=== PATIENT | female | born 1975 | race Caucasian/White ===

== ENCOUNTER 2016-09-13 07:16 | Emergency (ER) | payer OTHER ==
[2016-09-13 07:34] VITALS: BP 132/87
--- NOTE | 2016-09-13 08:05 | UC ---
Back Pain HPI - HPI Summary HPI Summary: 2 DAYS OF DIFFUSE LOW BACK PAIN. WORSE WITH MOVEMENT. NO H/O CHRONIC BACK ISSUES. 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 PAIN WAS INITIALLY NOT TOO BAD BUT HAS WORSENED. IBUPROFEN NOT HELPING. NO SADDLE ANESTHESIA OR LOWER EXTREMITY NUMBNESS/TINGLING. - History of Current Complaint Chief Complaint: UCBackPain Stated Complaint: LOWER BACK PAIN Time Seen by Provider: 09/13/16 07:46 Hx Obtained From: Patient Hx Last Menstrual Period: 09/13/16 Onset/Duration: Gradual Onset, Lasting Days, Still Present Timing: Constant Severity Initially: Mild Severity Currently: Moderate Pain Intensity: 3 Pain Scale Used: 0-10 Numeric Back Pain: Is Discrete @ - LOW BACK Character: Sharp, Aching Aggravating: Movement Alleviating: Rest Associated Signs And Symptoms: Positive: Pain with Weight Bearing. Negative: Swelling, Redness, Bruising, Fever, Weakness, Numbness, Tingling, Abdominal Pain , Flank Pain, Bladder Incontinence, Bowel Incontinence, Weight Loss - Allergies/Home Medications Allergies/Adverse Reactions: Allergies Allergy/AdvReac Type Severity Reaction Status Date / Time No Known Allergies Allergy Verified 09/13/16 07:22 PMH/Surg Hx/FS Hx/Imm Hx Endocrine History Of: Reports: Diabetes - Gestational- resolved 2003, Thyroid Disease, Hypothyroidism Cardiovascular History Of: Denies: Cardiac Disorders, Hypertension, Pacemaker/ICD Respiratory History Of: Denies: COPD, Asthma GI/ History Of: Reports: Gastroesophageal Reflux Denies: Renal Disease Neurological History Of: Reports: TIA - 11/2015 Denies: CVA, Dementia, Seizures Psychological History Of: Reports: Anxiety, Depression Other History Of: Negative For: Anticoagulant Therapy - Surgical History Surgical History: Yes Surgery Procedure, Year, and Place: T&A, LYMPH NODE REMOVED FROM GROIN - Family History Known Family History: Negative: Cardiac Disease, Hypertension, Diabetes - Social History Alcohol Use: Rare Substance Use Type: None Smoking Status (MU): Former Smoker - Immunization History Most Recent Influenza Vaccination: 2016 Most Recent Tetanus Shot: UTD Most Recent Pneumonia Vaccination: none Review of Systems Constitutional: Negative Skin: Negative Respiratory: Negative Cardiovascular: Negative Gastrointestinal: Negative Musculoskeletal: Decreased ROM, Myalgia All Other Systems Reviewed And Are Negative: Yes Physical Exam Triage Information Reviewed: Yes Appearance: Well-Appearing, Well-Nourished, Pain Distress - MILD Vital Signs: Initial Vital Signs Temp 97.5 F 09/13/16 07:25 Pulse 76 09/13/16 07:25 Resp 18 09/13/16 07:25 BP 132/87 09/13/16 07:25 Pulse Ox 98 09/13/16 07:25 Vital Signs Reviewed: Yes Eyes: Positive: Conjunctiva Clear ENT: Positive: Hearing grossly normal Neck: Positive: Supple Respiratory: Positive: No respiratory distress, No accessory muscle use Cardiovascular: Positive: Pulses Normal Abdomen Description: Positive: Soft Musculoskeletal: Positive: No Edema, ROM Limited @ - BACK Neurological: Positive: Alert Psychological: Positive: Age Appropriate Behavior Skin: Negative: rashes Back Pain Course/Dx - Differential Dx/Diagnosis Provider Diagnoses: ACUTE LOW BACK STRAIN Discharge - Discharge Plan Condition: Stable Disposition: HOME Prescriptions: Cyclobenzaprine TAB* [Flexeril TAB*] 10 mg PO BID PRN #30 tab PRN Reason: Pain Naproxen [Naproxen EC] 500 mg PO BID PRN #30 tab PRN Reason: Pain predniSONE TAB* [Deltasone TAB*] 40 mg PO DAILY #10 tab Patient Education Materials: Low Back Strain (ED) Forms: *Work Release Referrals: Deja Giordano NP [Primary Care Provider] - If Needed Additional Instructions: BE SURE TO GO THROUGH SLOW STRETCHING AND RANGE OF MOTION EXERCISES DAILY ABLE TO PREVENT STIFFENING UP AND MAKING THE DISCOMFORT WORSE.
== END 2016-09-13 08:30 | disposition home or self-care (01) ==
LOC: UCEAST 07:16
DX: S39.012A Strain of muscle, fascia and tendon of lower back, initial encounter (principal); X50.0XXA Overexertion from strenuous movement or load, initial encounter; Y93.F9 Activity, other caregiving; Y92.9 Unspecified place or not applicable; Y99.0 Civilian activity done for income or pay; Z87.891 Personal history of nicotine dependence
CPT/HCPCS: 99212; G0463

== ENCOUNTER 2019-07-01 08:09 | Emergency (ER) | payer OTHER ==
--- NOTE | 2019-07-01 08:19 | ED ---
Throat Pain/Nasal Congestion - HPI Summary HPI Summary: Patient is a 43-year-old female who presents emergency department for dental pain and facial swelling. Patient states that she has been on clindamycin for dental infection since last week. She did dental procedure yesterday and states she woke up this morning with increased facial swelling. Patient denies fever, chills, nausea, vomiting, difficulty swallowing. No significant past medical history. Patient did not call her dentist today. Symptoms are mild in severity. Touching affected area makes symptoms worse. Rest makes symptoms better. - History of Current Complaint Chief Complaint: EDDentalPain Time Seen by Provider: 07/01/19 08:17 Hx Obtained From: Patient - Allergies/Home Medications Allergies/Adverse Reactions: Allergies Allergy/AdvReac Type Severity Reaction Status Date / Time No Known Allergies Allergy Verified 07/01/19 08:22 Home Medications: Home Medications Clindamycin HCl 300 mg PO QID 07/01/19 [History Confirmed 07/01/19] PMH/Surg Hx/FS Hx/Imm Hx Previously Healthy: Yes Endocrine/Hematology History: Reports: Hx Diabetes - Gestational- resolved 2003 , Hx Thyroid Disease Denies: Hx Anticoagulant Therapy Cardiovascular History: Denies: Hx Hypertension, Hx Pacemaker/ICD Respiratory History: Denies: Hx Asthma, Hx Chronic Obstructive Pulmonary Disease (COPD) History: Denies: Hx Renal Disease Sensory History: Denies: Hx Hearing Aid Neurological History: Reports: Hx Transient Ischemic Attacks (TIA) - 11/2015 Denies: Hx Dementia, Hx Seizures Psychiatric History: Reports: Hx Anxiety, Hx Depression Denies: Hx Panic Disorder, Hx Substance Abuse - Surgical History Surgery Procedure, Year, and Place: T&A, LYMPH NODE REMOVED FROM [facility] Infectious Disease History: No Infectious Disease History: Denies: Hx Hepatitis, Hx Human Immunodeficiency Virus (HIV), Traveled Outside the [place] in Last 30 Days - Family History Known Family History: Positive: Non-Contributory Negative: Cardiac Disease, Hypertension, Diabetes - Social History Occupation: Employed Full-time Lives: With Family Alcohol Use: Rare Substance Use Type: Reports: None Smoking Status (MU): Former Smoker Review of Systems Constitutional: Negative Negative: Fever Positive: Dental Pain Cardiovascular: Negative Respiratory: Negative Gastrointestinal: Negative Negative: Vomiting, Nausea Skin: Negative Neurological: Negative All Other Systems Reviewed And Are Negative: Yes Physical Exam Triage Information Reviewed: Yes Vital Signs On Initial Exam: Initial Vitals Temp Pulse Resp BP Pulse Ox 98.6 F 87 18 159/119 97 07/01/19 08:13 07/01/19 08:13 07/01/19 08:13 07/01/19 08:13 07/01/19 08:13 Vital Signs Reviewed: Yes Appearance: Positive: Well-Appearing - Pt. sitting up in bed in NAD. present. Skin: Positive: Warm, Dry Head/Face: Positive: Normal Head/Face Inspection Eyes: Positive: Normal, EOMI, HARLEY Dental: Positive: Other - Fillings noted to right bottom second molar. Surrounding gums are erythematous and edematous without drainable abscess. No swelling under tongue. No trismus. No submandibular edema. Mild right-sided facial edema that extends to lower lip. Neck: Positive: Supple, Nontender, No Lymphadenopathy Respiratory/Lung Sounds: Positive: Clear to Auscultation, Breath Sounds Present Cardiovascular: Positive: Normal, RRR Neurological: Positive: Normal, CN Intact II-III Psychiatric: Positive: Affect/Mood Appropriate Procedures - Sedation Patient Received Moderate/Deep Sedation with Procedure: No Diagnostics - Vital Signs Vital Signs Temp Pulse Resp BP Pulse Ox 07/01/19 08:13 98.6 F 87 18 159/119 97 - Laboratory Lab Statement: Any lab studies that have been ordered have been reviewed, and results considered in the medical decision making process. EENT Course/Dx - Course Course Of Treatment: Patient presenting with worsening facial edema after procedure yesterday. Patient is afebrile and well appearing. Patient was examined by Dr. Ochoa as well. He recommends adding penicillin to clindamycin. Advised patient anti-inflammatories for swelling. To apply to warm compresses. Advised patient to call her dentist today for close follow-up and return to the ER symptoms change or worsen. - Diagnoses Provider Diagnoses: Toothache Discharge ED - Sign-Out/Discharge Documenting (check all that apply): Patient Departure - Discharge Plan Condition: Good Disposition: HOME Prescriptions: Penicillin VK 500 MG TAB(NF) [Penicillin VK 500 mg Tab] 500 mg PO QID #40 tab Patient Education Materials: Toothache (ED) Referrals: Mayra Aranda [employer] [Primary Care Provider] - Additional Instructions: Please call your dentist today for a close follow up appointment Start penicillin today as directed Continue clindamycin as directed Take ibuprofen 400mg-600mg every 6 hours Apply warm compresses to face Return to ER for increased swelling, pain, fever, difficulty swallowing or if concerned - Billing Disposition and Condition Condition: GOOD Disposition: Home
--- NOTE | 2019-07-01 08:56 | ED ---
Progress - Progress Note Progress Note: This patient is a 43 year old F presenting to [facility] with a chief complaint of worsening dental pain since 06/30/19. Pt had dental work on 06/30/19. Pt has been on clindamycin since 06/28/19. She has pain down right side of neck; however other side is fine. She was swollen from procedure but pt has not previously had pain/swelling after fillings. Course/Dx - Course Course Of Treatment: This patient is a 43 year old F presenting to [facility] with a chief complaint of worsening dental pain since 06/30/19. Pt had dental work on 06/30/19. Pt has been on clindamycin since 06/28/19. She has pain down right side of neck; however other side is fine. She was swollen from procedure but pt has not previously had pain/swelling after fillings. Pt was prescribed Penicillin. - Diagnoses Provider Diagnoses: Toothache Discharge ED - Sign-Out/Discharge Documenting (check all that apply): Patient Departure - Discharge - Discharge Plan Condition: Good Disposition: HOME Prescriptions: Penicillin VK 500 MG TAB(NF) [Penicillin VK 500 mg Tab] 500 mg PO QID #40 tab Patient Education Materials: Toothache (ED) Referrals: Mayra Aranda NP [Primary Care Provider] - Additional Instructions: Please call your dentist today for a close follow up appointment Start penicillin today as directed Continue clindamycin as directed Take ibuprofen 400mg-600mg every 6 hours Apply warm compresses to face Return to ER for increased swelling, pain, fever, difficulty swallowing or if concerned - Billing Disposition and Condition Condition: GOOD Disposition: Home - Attestation Statements Document Initiated by Ramiro: Yes Documenting Scribe: Emperatriz Olivia Provider For Whom Ramiro is Documenting (Include Credential): Derek Bernard MD Scribe Attestation: Emperatriz Campbell scribed for Derek Bernard MD on 07/03/19 at 1840. Scribe Documentation Reviewed: Yes Provider Attestation: The documentation as recorded by the Emperatriz gonzales accurately reflects the service I personally performed and the decisions made by me, Derek Bernard MD Status of Scribe Document: Viewed
[2019-07-01 09:05] VITALS: BP 149/108
== END 2019-07-01 09:03 | disposition home or self-care (01) ==
LOC: ED 08:09
DX: K08.89 Other specified disorders of teeth and supporting structures (principal); E07.9 Disorder of thyroid, unspecified; F41.9 Anxiety disorder, unspecified; F32.9 Major depressive disorder, single episode, unspecified; Z87.891 Personal history of nicotine dependence; Z79.899 Other long term (current) drug therapy
CPT/HCPCS: 99282